=== PATIENT | male | born 1980 | race Caucasian/White ===

== ENCOUNTER → 2021-03-26 | Outpatient (CLI) | payer OTHER ==
--- NOTE | 2021-03-27 13:34 | REPVR ---
PROCEDURE INFORMATION: Exam: MR Lumbar Spine Without Contrast Exam date and time: 03/26/2021 1:14 PM Age: 40 years old Clinical indication: Low back pain; Additional info: Lumbago with sciatica, unspecified side TECHNIQUE: Imaging protocol: Multiplanar magnetic resonance images of the lumbar spine without intravenous contrast. COMPARISON: No relevant prior studies available. FINDINGS: Vertebrae: No acute compression fracture is seen. Bone marrow signal is within normal limits. Spinal cord: The conus medullaris terminates at the L1-L2 level. There is no evidence of arachnoiditis or cauda equina compression. L1-L2: There is mild diffuse circumferential disc bulging and facet arthropathy. There is no significant spinal canal or neural foraminal stenosis. L2-L3: There is mild diffuse circumferential disc bulging and facet arthropathy. There is no significant spinal canal or neural foraminal stenosis. L3-L4: There is mild diffuse circumferential disc bulging and facet arthropathy. This is causing minimal right and mild left neural foraminal stenosis. There is no significant spinal canal stenosis. L4-L5: There is minimal diffuse circumferential disc bulging and mild facet arthropathy. This is causing mild bilateral neural foraminal stenosis. There is no significant spinal canal stenosis. L5-S1: There is disc dehydration, mild disc space narrowing, moderate diffuse circumferential disc bulging, and a left paracentral and subarticular annular fissure. Central disc material is migrating caudally roughly 4 mm from the level of the disc. Moderate facet arthropathy is also noted. There is no significant spinal canal stenosis. There is mild narrowing of the subarticular recesses and moderate bilateral neural foraminal stenosis. Soft tissues: Unremarkable. IMPRESSION: Degenerative changes of the lumbar spine as discussed above Electronically signed by: Braydon Sapp On 03/27/2021 13:34:15 PM
== END ==
LOC: M PLAIMG 12:26
PROVIDERS: ATTEND Chiropractor
DX: M51.26 Other intervertebral disc displacement, lumbar region (principal)